=== PATIENT | female | born 1965 | race Two or more races ===

== ENCOUNTER 2022-06-14 23:41 | Emergency (ER) | payer OTHER ==
[~2022-06-14] VITALS: Ht 165.1 cm; Wt 77.1 kg
== END 2022-06-15 20:53 | disposition designated cancer center or children's hospital (05) ==
LOC: ER 23:41
DX: T14.91XA Suicide attempt, initial encounter (principal); T42.4X2A Poisoning by benzodiazepines, intentional self-harm, initial encounter; T48.1X2A Poisoning by skeletal muscle relaxants [neuromuscular blocking agents], intentional self-harm, initial encounter; Y92.018 Other place in single-family (private) house as the place of occurrence of the external cause; Y93.89 Activity, other specified; I10 Essential (primary) hypertension; F41.8 Other specified anxiety disorders; Z91.013 Allergy to seafood